=== PATIENT | male | born 1995 | race Asian ===

== ENCOUNTER 2024-08-14 21:58 | Emergency (ER) | payer MEDICAID, SELFPAY ==
[2024-08-14 22:00] VITALS: BMI 21.2
[2024-08-14 22:39] VITALS: BP 130/78; PULSE 68; RESP 16; TEMP 36.9; O2SAT 100
--- NOTE | 2024-08-14 22:51 | EDNOTE_ITS ---
ED Skin Abcess FB-RME/HPI General Chief complaint: Skin/Abscess/Foreign Body Stated complaint: RASH ON BACK Time Seen by Provider: 08/14/24 22:50 Source: patient Arrival date/time: 08/14/24 21:58 29-year-old male with no past medical history presents emergency department complaining of rash to back that is been ongoing for 1 year. Patient denies any fever, chills, cough, sore throat, shortness of breath, nausea vomiting, or any other associated symptom. Mode of arrival: ambulatory Limitations: language barrier ([employer] bedspread seamer was provided) Related Data Previous Rx's ?Medication ?Instructions ?Recorded white petrolatum 41 % topical 1 applic topical QDAY PRN dry skin 08/14/24 ointment (Aquaphor Original) #396 grams Allergies Allergy/AdvReac Type Severity Reaction Status Date / Time No Known Allergies Allergy Verified 08/14/24 22:00 Review of Systems Review of Systems Systems Reviewed: All systems reviewed, normal except as documented Constitutional Constitutional: Reports system reviewed and no additional complaints, except as documented, Denies body ache(s), Denies chills and Denies fever(s) Eyes Eyes: Reports system reviewed and no additional complaints, except as documented and Denies change in vision ENT Ears, Nose, Mouth, and Throat: Reports system reviewed and no additional complaints, except as documented, Denies disequilibrium, Denies dizziness, Denies sore throat and Denies vertigo Cardiovascular Cardiovascular: Reports system reviewed and no additional complaints, except as documented, Denies chest pain and Denies dyspnea Respiratory Respiratory: Reports system reviewed and no additional complaints, except as documented, Denies chest congestion, Denies cough and Denies dyspnea Gastrointestinal Gastrointestinal: Reports system reviewed and no additional complaints, except as documented, Denies abdominal pain, Denies nausea and Denies vomiting Musculoskeletal Musculoskeletal: Reports system reviewed and no additional complaints, except as documented, Denies abnormal gait and Denies arthralgias Integumentary/Breasts Skin/Breast: Reports system reviewed and no additional complaints, except as documented, Denies erythema, Reports rash and Denies wounds Neurologic Neurologic: Reports system reviewed and no additional complaints, except as documented, Denies abnormal gait, Denies disequilibrium, Denies dizziness and Denies vertigo Past Medical History Past Medical History NEUROLOGIC: Negative Neurological Disorders CARDIAC: Negative Cardiac Disorders or Congestive Heart Failure RESPIRATORY: Negative Chronic Obstructive Pulmonary Disease (COPD) GASTROINTESTINAL: Negative Gastrointestinal Disorders or Hepatitis GENITOURINARY: Negative Genitourinary Disorders or Renal Disease REPRODUCTIVE: Negative Breast Cancer MUSCULOSKELETAL: Negative Musculoskeletal Disorders ENDOCRINE: Negative Endocrine Disorders, Diabetes Mellitus Type 1 or Diabetes Mellitus Type 2 HEMATOLOGIC: Negative Blood Disorders OTHER HISTORY: Negative Hospitalization, Autoimmune Disease, Down Syndrome, Developmental Delay, Shingles, Falls, Blood Transfusions, Blood Transfusion Reaction, Anesthesia Reactions, Organ Transplant, Chemotherapy, Radiation Therapy, Hyperbaric Therapy, MRSA, VRSA, Vancomycin-Resistant Enterococci, Human Immunodeficiency Virus (HIV), Chicken Pox, Measles, Mumps, Rubella (D[place]ib[place]ian Measles), Pertussis, Clostridium Difficile, Cancer or Breast Cancer Family History FAMILY HISTORY: Negative Family Psychiatric Problems, Family Respiratory Disorders, Family Cardiac Disorders or Family Gastrointestinal Problems Surgical History SURGICAL: Negative Organ Transplant Social History SMOKING STATUS: Never smoker ED Exam General Limitations: Present language barrier ([employer] bedspread seamer was provided) General appearance: Present alert and in no apparent distress Head Head exam: Present atraumatic Eye Eye exam: Present normal appearance, PERRL and EOMI ENT ENT exam: Present normal exam, normal oropharynx and mucous membranes moist Neck Neck exam: Present normal inspection, full ROM and trachea midline Chest Chest inspection: Present normal inspection and symmetric chest wall rise Respiratory Respiratory exam: Present normal lung sounds bilaterally Cardiovascular Cardiovascular exam: Present regular rate, normal rhythm and normal heart sounds Abdominal Exam Abdominal exam: Present soft and normal bowel sounds Extremities Exam Extremities exam: Present normal inspection and full ROM Back Exam Back exam: Present normal inspection and full ROM Neurological Exam Neurological exam: Present alert, oriented X3 and CN II-XII intact Psychiatric Psychiatric exam: Present normal affect and normal mood Skin Skin exam: Present warm, dry and intact Expanded Skin Exam Type of lesion: Present other (Dry scaly skin) Distribution: Present generalized Body image: 2 1. Dry scaly skin no obvious rash erythema lesions or abscesses. Course Quality Measures none Vital Signs Vital signs: Vital Signs Temperature 98.4 F 08/14/24 22:39 Pulse Rate 68 08/14/24 22:39 Respiratory Rate 16 08/14/24 22:39 Blood Pressure 130/78 08/14/24 22:39 Pulse Oximetry (%) 100 08/14/24 22:39 Oxygen Delivery Method Room Air 08/14/24 22:39 100% room air within normal limits Skin / Abscess / Foreign Body MDM Narrative MDM Narrative:: 29-year-old male with no past medical history presents emergency department complaining of rash to back that is been ongoing for 1 year. Patient denies any fever, chills, cough, sore throat, shortness of breath, nausea vomiting, or any other associated symptom. On skin exam patient is back is dry scaly skin, with no erythema, rash, or signs of infection. No abnormal skin growths observed. Patient appears nontoxic and hemodynamically stable. Patient discharged home and instructed to follow-up with primary care provider and request referral to handle rounder operator if symptoms persist. Instructed to return to emergency department for any worsening symptoms or as needed. Patient data External records reviewed:: None Clinical information provided by:: patient and family Social determinants that could affect healthcare access:: none Patient has the following chronic illnesses:: Not applicable How is presenting disease/condition affected by chronic disease/condition?: no chronic disease Evaluation data The following diagnostics were reviewed and interpreted by me:: other (specify) (Not applicable) Lab and/or radiology exams considered but not ordered:: Not applicable Interpretation Summary: Not applicable Medications / Prescriptions Medications or Prescriptions considered but not ordered:: Prescribed Medication administrations:: Not applicable Consultations Consultation(s) initiated? (list below): No Diagnosis Skin/Abscess Differential Diagnosis: viral exanthem, eczema and contact dermatitis Most likely diagnosis given after review of the tests above:: Dry skin dermatitis Admission Indicated Admission indicated?: not indicated Admission Request Was there a request for admission?: No Disposition Plan Disposition Plan: Discharge Discharge Attestation Discharge Attestation: The patient and all family members were given an opportunity to ask questions and understood the discharge instructions. Discharge instructions specifically effects, indications for sooner follow up or return to the emergency department, and the expected course of current diagnosis. Patient condition: Stable Discharge Plan Plan Patient Disposition: HOME (Self Care) Disposition Comment: Stable Prescriptions/Referrals Prescriptions/Med Rec: New Aquaphor Original 41 % ointment 1 applic topical QDAY PRN (Reason: dry skin) Qty: [id number] Problem List Clinical Impression: Dry skin dermatitis Patient/Caregiver Discharge Instructions Additional Instructions: Apply medication as prescribed. Follow-up with primary care provider and request referral to handle rounder operator if symptoms persist. Return to emergency department for any worsening symptoms or as needed. Print Language: Mandarin Stand Alone Forms: Cathy Award Info., Patient Portal Info Letter MD Attestation MD Attestation The patient was seen by the midlevel practitioner. I, the co-signing physician, was present during the entire ER visit. While I did not physically examine the patient, I was available for consultation as needed.
== END 2024-08-14 23:56 | disposition home or self-care (01) ==
LOC: SERX 23:50
PROVIDERS: Emergency Provider Emergency Medicine
DX: L85.3 Xerosis cutis (principal)
CPT/HCPCS: 99281

== ENCOUNTER → 2025-03-20 | Outpatient (BNVA) | payer MEDICAID, SELFPAY | END | disposition home or self-care (01) | PROVIDERS: PCP Nurse Practitioner Family; Referring Provider Nurse Practitioner Family; Visit Provider Nurse Practitioner Family | DX: Z76.89 Persons encountering health services in other specified circumstances (principal); Z11.3 Encounter for screening for infections with a predominantly sexual mode of transmission; Z13.220 Encounter for screening for lipoid disorders; Z13.1 Encounter for screening for diabetes mellitus; Z23 Encounter for immunization; Z28.39 Other underimmunization status | CPT/HCPCS: 90471; 90715; 99214 ==

== ENCOUNTER → 2025-04-03 | Outpatient (BNVA) | payer MEDICAID, SELFPAY | END | disposition home or self-care (01) | PROVIDERS: PCP Nurse Practitioner Family; Referring Provider Nurse Practitioner Family; Visit Provider Nurse Practitioner Family | DX: Z71.2 Person consulting for explanation of examination or test findings (principal); L70.9 Acne, unspecified; E78.5 Hyperlipidemia, unspecified; Z28.83 Immunization not carried out due to unavailability of vaccine; R06.83 Snoring; R79.89 Other specified abnormal findings of blood chemistry | CPT/HCPCS: 99215 ==

== ENCOUNTER → 2025-06-12 | Outpatient (BNVA) | payer MEDICAID, SELFPAY | END | disposition home or self-care (01) | PROVIDERS: PCP Nurse Practitioner Primary Care; Referring Provider Nurse Practitioner Primary Care; Visit Provider Nurse Practitioner Primary Care | DX: Z00.01 Encounter for general adult medical examination with abnormal findings (principal); R79.89 Other specified abnormal findings of blood chemistry; E78.5 Hyperlipidemia, unspecified; R06.83 Snoring | CPT/HCPCS: 99173; 99395; G0439 ==

== ENCOUNTER → 2025-06-26 | Outpatient (BNVA) | payer MEDICAID, SELFPAY | END | disposition home or self-care (01) | PROVIDERS: PCP Nurse Practitioner Family; Referring Provider Nurse Practitioner Family; Visit Provider Nurse Practitioner Family | DX: Z71.2 Person consulting for explanation of examination or test findings (principal); E78.5 Hyperlipidemia, unspecified; Z13.1 Encounter for screening for diabetes mellitus | CPT/HCPCS: 99213 ==

== ENCOUNTER 2025-08-24 23:18 | Observation (INO) | payer MEDICAID, SELFPAY ==
[2025-08-24 23:20] VITALS: BMI 21.7
[2025-08-24 23:34] VITALS: BP 135/91; PULSE 81; RESP 18; TEMP 36.4; O2SAT 98
--- NOTE | 2025-08-24 23:41 | XR_ITS ---
Examination: CT abdomen with intravenous contrast CT pelvis with intravenous contrast 2-D coronal reconstructions 2-D sagittal reconstructions Date and time of exam: August 25, 2025, 0157 hours INDICATIONS: Abdominal pain nausea vomiting today. CTDI: vol (mGy) 4.47 DLP: (mGycm) 264 Technique: Multiple axial sections of the abdomen and pelvis have been obtained. 64 slice high-resolution scanner used. 3 mm axial sections have been obtained, post intravenous injection 60 cc Isovue 370 2-D sagittal, coronal reconstructions obtained. Low dose protocols were performed. One or more of the following dose reduction techniques were used; automated exposure control, adjustment of the mA and/or KV according to patient size, use of iterative reconstruction technique. Findings: No focal liver or splenic lesions No biliary tract dilatation Multiple fluid distended small bowel loops Aorta normal size Normal appendix Urinary bladder intact No prostatomegaly Osseous structures intact IMPRESSION: Multiple fluid distended small bowel loops, differential would include enteritis, early small bowel obstruction, clinical correlation advised
--- NOTE | 2025-08-24 23:42 | PD.EDRME ---
Rapid Medical Screening Exam [facility] Arrival date/time: 08/24/25 23:18 30M with no significant PMH Presents to ED with N/V, ab pain, and diarrhea. Chief Complaint: Abdominal Pain Vital signs: Vital Signs Temperature 97.6 F 08/24/25 23:34 Pulse Rate 81 08/24/25 23:34 Respiratory Rate 18 08/24/25 23:34 Blood Pressure 135/91 H 08/24/25 23:34 Pulse Oximetry (%) 98 08/24/25 23:34 Oxygen Delivery Method Room Air 08/24/25 23:34 Exam: Mild gen ab tenderness. Actively having N/V. Clinical Impression: gastroenteritis vs appy vs ab pain vs food poisoning vs drug/alcohol use
[2025-08-25] VITALS (7 sets, daily range): BP systolic 102–138; BP diastolic 67–84; PULSE 69–95; RESP 18–19; TEMP 36.3–37.1; O2SAT 96–100; BMI 21.7
[2025-08-25] MEDS: ONDANSETRON INJ 2 MG/ML INJ 2 ML 4 MG IVP (00:18)
[2025-08-25] MEDS: SODIUM CHLORIDE 0.9% 1000 ML 1,000 ML 999 ML IV ×2 (00:18→03:40)
[2025-08-25] MEDS: MORPHINE SULF INJ 4 MG/ML VIAL IV (00:18)
[2025-08-25 01:39] LABS: Anion Gap 11 (7-16); BUN/Creatinine Ratio 14 Ratio (12-20); Blood Urea Nitrogen 15 mg/dL (9-23); Carbon Dioxide 26.7 mMol/L (20.0-31.0); Chloride 104 mMol/L (98-107); Creatinine (Component) 1.1 mg/dL (0.6-1.3); Estimated Creatinine Clearance 93.6 mL/min (>60); Potassium 3.4 mMol/L (3.4-5.1); Sodium 142 mMol/L (136-145)
[2025-08-25 01:40] LABS: Alanine Aminotransferase 34 U/L (10-49); Albumin, Serum 4.7 gm/dL (3.5-5.0); Albumin/Globulin Ratio 2.1 (1.2-2.2); Alcohol, Blood Medical < 3.0 mg/dL (0-10.0); Alkaline Phosphatase 71 U/L (46-116); Aspartate Amino Transferase 22 U/L (0-34); Bilirubin,Total 0.8 mg/dL (0.3-1.2); Calcium 9.2 mg/dL (8.3-10.6); Calcium (Corrected) 9.2 mg/dL (8.5-10.1); Globulin 2.2 gm/dL (2.3-3.5); Glucose 125 mg/dL (74-106); Lipase 54 U/L (12-53); Osmolality,Calculated 284 (275-295); Total Protein 6.9 gm/dL (5.7-8.2); eGFR > 60 See Note
[2025-08-25 02:11] LABS: Basophils # (Auto) 0.1 Thou/mm3 (0.0-0.2); Basophils % (Auto) 0 % (0-2.5); Eosinophils # (Auto) 0.1 Thou/mm3 (0.0-0.5); Eosinophils % (Auto) 1 % (0-10); Hematocrit 45.6 % (41.0-53.0); Hemoglobin 15.4 g/dL (13.5-16.0); Immature Granulocytes Auto 0.03 Thou/mm3 (0.00-0.00); Lymphocytes # (Auto) 3.8 Thou/mm3 (1.0-4.8); Lymphocytes % (Auto) 32 % (10-50); Mean Corpuscular HGB Conc 33.8 g/dl (31.0-37.0); Mean Corpuscular Hemoglobin 31.2 pg (25.0-35.0); Mean Corpuscular Volume 92 fL (80-100); Monocytes # (Auto) 0.8 Thou/mm3 (0.0-0.8); Monocytes % (Auto) 6 % (0-12); Neutrophils # (Auto) 7.4 Thou/mm3 (1.8-7.7); Neutrophils % (Auto) 61 % (37-80); Nucleated Red Blood Cell # 0.00 Thou/mm3 (0.00-0.00); Nucleated Red Blood Cell % 0 /100 WBC (0); Platelet Count 201 Thou/mm3 (140-440); RDW Standard Deviation 42.0 fL (35.1-43.9); Red Blood Count 4.94 Miln/mm3 (4.50-5.90); White Blood Count 12.2 Thou/mm3 (3.8-10.6)
[2025-08-25 02:27] LABS: Collection Type, Urine Clean Catch; Squamous Epithelial Cell,Urine 0 /hpf (0-5)
[2025-08-25 02:40] LABS: Bilirubin,Urine Negative (Negative); Blood,Urine Negative (Negative); Clarity,Urine Clear (Clear/Hazy); Color,Urine Lt-Yellow (Lt Yel-Yel); Culture Indicated,Urine Not Indicated; Glucose, Urine Negative (Negative); Ketones,Urine 2+ (Negative); Leukocyte Esterase,Urine Negative (Negative); Nitrite,Urine Negative (Negative); PH,Urine 7.0 (5.0-7.0); Protein,Urine Trace (Neg - Trace); RBC,Urine 9 /hpf (0-3); Specific Gravity,Urine 1.042 (1.001-1.035); Urobilinogen,Urine Negative mg/dL (0.0-1.0); WBC,Urine < 1 /hpf (0-5)
[2025-08-25 03:11] LABS: Amphetamine/Methamp Scrn,U Negative (Negative); Barbiturate Screen,Urine Negative (Negative); Benzodiazepines Screen,Urine Negative (Negative); Benzoylecgonine Screen, Ur Negative (Negative); Fentanyl Screen,Urine Negative (Negative); Opiate Screen,Urine Positive (Negative); THC Screen,Urine Negative (Negative)
--- NOTE | 2025-08-25 03:16 | PD.EDABDPN ---
ED Abdominal Pain RME/HPI General Chief Complaint: Abdominal Pain Stated complaint: ABD PAIN VOMITING, DIARRHEA Time seen by provider: 08/24/25 23:43 Arrival date/time: 08/24/25 23:18 RME / HPI RME / HPI narrative: 08/24/25 23:18 30M with no significant PMH Presents to ED with N/V, ab pain, and diarrhea. DR. CLEARY MAIN ED EVALUATION: Patient presents with multiple bouts of nausea, vomiting, and diarrhea onset 7 PM this evening with diffuse abdominal pain vaguely described as pressure-like. No definite fever or chills. No URI symptoms. No dysuria. PMH: Unremarkable PSH: Unremarkable Allergies: Unremarkable Social: Unremarkable Exam: Mild gen ab tenderness. Actively having N/V. Impression: gastroenteritis vs appy vs ab pain vs food poisoning vs drug/alcohol use Related Data Home Medications ?Medication ?Instructions ?Recorded ?Confirmed No Known Home Medications 06/26/25 06/26/25 Allergies Allergy/AdvReac Type Severity Reaction Status Date / Time No Known Allergies Allergy Verified 08/24/25 23:33 Review of Systems Review of Systems Systems Reviewed: All systems reviewed, normal except as documented ED Exam Narrative Physical exam: GEN. APPEARANCE: The patient is alert awake oriented X-3 under mild distress c/o generalized abdominal pain, lying down comfortably, does not look ill/toxic. Patient has good eye contact. Patient is cooperative. VITALS: All vitals were reviewed and the pulse ox is 98%, which is normal according to my interpretation HEENT: Normocephalic, atraumatic and nontender. Pupils are equal and reactive. Oral mucosa is moist. NECK: Supple, nontender, no meningismus, no JVD. There is no thyromegaly and no lymphadenopathy. CHEST: Nontender on palpation no deformity and no crepitus. CARDIOVASCULAR: Heart regular rhythm, no murmur or gallop rub or extra beats. LUNGS: Clear to auscultation bilaterally with symmetrical chest rise. No laboring tachypnea or wheezing. No intercostal subcostal retraction. No rales and no rhonchi. ABDOMEN: Soft, flat, nontender to palpation, no guarding, slightly hypertympanitic. There are no abnormal masses palpated. No pulsatile masses or bruits. Active and normal bowel sounds. EXTREMITIES: Normal inspection and palpation. No edema. No cyanosis. Patient is able to move all 4 extremities well SKIN: Warm and dry, no rashes noted. MUSCULOSKELETAL: No lumbar or midline bony tenderness. There is no CVA tenderness. No paraspinal muscle spasm or tenderness. NEURO: Cranial nerves II through XII grossly intact. There are no focal neurologic deficits noted. GCS is 15 PSYCHIATRIC: Patient is in normal mood and affect, cooperative. LYMPHATICS: No major lymphadenopathy noted. Course Quality Measures none Orders Category Date Time Status CT Screening NOW Care 08/24/25 23:41 Active Insert IV NOW Care 08/24/25 23:[address] abdomen pelvis w con Stat Exams 08/24/25 23:41 Taken US abdomen limited Stat Exams 08/25/25 03:42 Ordered Alcohol, Blood Medical Stat Lab 08/24/25 23:41 Completed CBC Stat Lab 08/24/25 23:41 Completed CMP [Comprehensive Metabolic Panel] Stat Lab 08/24/25 23:41 Completed Drug Screen,Urine Stat Lab 08/25/25 02:25 Completed Lipase Stat Lab 08/24/25 23:41 Completed Norovirus, EIA (Stool)* Stat Lab 08/25/25 Ordered UA, C/S IF [Urinalysis, C/S if Indicated] Stat Lab 08/25/25 02:25 Completed Morphine* Inj Med 08/24/25 23:48 Discontinued 4 mg IV X1 ONE Ondansetron Inj [Zofran Inj] Med 08/24/25 23:41 Discontinued 4 mg IVP X1 ONE Prochlorperazine Inj [Compazine Inj] Med 08/25/25 03:29 Discontinued 5 mg IV X1 ONE Sodium Chloride 0.9% 1000 ml [Ns] 1,000 ml Med 08/24/25 23:41 Discontinued IV 999 mls/hr Sodium Chloride 0.9% 1000 ml [Ns] 1,000 ml Med 08/25/25 03:29 Active IV 999 mls/hr cefTRIAXone/D5w 1gm IV premix [Rocephin/D5w 1gm IV Med 08/25/25 03:39 Ordered premix] 1 gm in 50 ml IV X1 metroNIDAZOLE/NS 500 MG IVPB [Flagyl 500 mg IV] Med 08/25/25 03:42 Ordered 500 mg in 100 ml IV Q6HR Vital Signs Vital signs: Vital Signs Temperature 97.6 F 08/24/25 23:34 Pulse Rate 81 08/24/25 23:34 Respiratory Rate 18 08/24/25 23:34 Blood Pressure 135/91 H 08/24/25 23:34 Pulse Oximetry (%) 98 08/24/25 23:34 Oxygen Delivery Method Room Air 08/24/25 23:34 Abdominal Pain MDM MDM Narrative MDM Narrative:: Scribe Attestation: Elisa Alfredo, am scribing for and in the presence of Dr. Lazcano. Provider Notation: Although this document has been carefully reviewed, there may still be some phonetic and other typographical errors. These errors are purely grammatical due to imperfections in the software program and should not be construed in any way to compromise the substance of the patient's medical care during this visit. Patient presents with multiple bouts of nausea, vomiting, and diarrhea onset 7 PM this evening with diffuse abdominal pain vaguely described as pressure-like. No definite fever or chills. Please see PE findings. Patient was aggressively hydrated to correct volume deficit and treated with low-dose narcotic analgesics/anti-emetics with mild to moderate relief. Patient referred to CT scan which demonstrates evidence of partial SBO/Enteritis. Imperic ABX administered, patient remained hemodynamically stable with no signs of underlying sepsis. Final diagnoses include Ileus, acute enteritis, and dehydration. Patient data External records reviewed:: [facility] previous records (Reviewed prior ED records from 08/14/24. Patient was seen for Dry skin dermatitis.) Clinical information provided by:: patient Social determinants that could affect healthcare access:: none Patient has the following chronic illnesses:: None reported How is presenting disease/condition affected by chronic disease/condition?: no chronic disease Evaluation data The following diagnostics were reviewed and interpreted by me:: lab results and radiology exam(s) Lab and/or radiology exams considered but not ordered:: None Interpretation Summary: RADIOLOGY Abdomen/Pelvis CT: Findings: The lung bases are clear. The liver, spleen, adrenal glands, pancreas and kidneys are unremarkable. The gallbladder and stomach are decompressed with probable wall edema. The urinary bladder is normal. Trace free fluid in the pelvis. The abdominal wall is unremarkable. Mild diffuse small bowel wall thickening. There are mildly distended small bowel loops with fluid levels. Edema of the mid transverse through descending colon. No free intraperitoneal air. The appendix is normal, best seen on image 168. Impression: Enterocolitis with partial small bowel obstruction. Probable gallbladder wall edema. Consider ultrasound for further evaluation if there is concern for cholecystitis. Possible gastric wall edema, not well evaluated secondary to decompression, may represent gastritis. Medications / Prescriptions Medications or Prescriptions considered but not ordered:: None Medication administrations:: Medication Administration History Sodium Chloride (Ns) 1,000 mls @ 999 mls/hr IV .Q1H1M ONE Stop: 08/25/25 04:29 Last Admin: 08/25/25 03:40 Dose: 999 mls/hr Documented By: MELONIE Ceftriaxone Sodium/Dextrose (Rocephin/D5w 1gm Iv Premix) 1 gm in 50 mls @ 100 mls/hr IV X1 ONE Stop: 08/25/25 04:08 Metronidazole (Flagyl 500 Mg Iv) 500 mg in 100 mls @ 200 mls/hr IV Q6HR STARLA Stop: 09/01/25 03:41 Discontinued Medications Sodium Chloride (Ns) 1,000 mls @ 999 mls/hr IV .Q1H1M ONE Stop: 08/25/25 00:41 Last Infusion: 08/25/25 02:26 Dose: Infused Documented By: Admin: 08/25/25 00:18 Dose: 999 mls/hr Documented By: DMITRY Morphine Sulfate (Morphine Sulf Inj 4 Mg/Ml Vial) 4 mg IV X1 ONE Stop: 08/24/25 23:49 Last Admin: 08/25/25 00:18 Dose: 4 mg Documented By: DMITRY Ondansetron HCl (Ondansetron Inj 2 Mg/Ml Inj 2 Ml) 4 mg IVP X1 ONE; Protocol Stop: 08/24/25 23:42 Last Admin: 08/25/25 00:18 Dose: 4 mg Documented By: DMITRY Prochlorperazine Edisylate (Prochlorperazine Inj 5 Mg/Ml Vial 2 Ml) 5 mg IV X1 ONE; Protocol Stop: 08/25/25 03:30 See above if any Consultations Consultation(s) initiated? (list below): Yes Consultation #1 (Physician, Specialty, Details): Discussed with resident physician, Dr. Cross, for admission. Reviewed the patient?s HPI, PMHx, lab and/or radiology results. Discussed treatment plan. Will consult an admission to the hospitalist. Time: 03:48 Diagnosis Differential diagnosis abdominal pain: abdominal pain, acute appendicitis, calculus of kidney, constipation, diverticulitis, gastroenteritis, pancreatitis and small bowel obstruction Most likely diagnosis given after review of the tests above:: Ileus, acute enteritis, and dehydration Admission Indicated Admission indicated?: indicated Explain why admission is indicated or not indicated:: Ileus, acute enteritis, and dehydration Admission Request Was there a request for admission?: Yes Admission Attestation Admission request attestation: Discussed case with [] from Hospitalist service regarding admission. Discussed patients ED course, exam findings, labs, and radiology results. The Hospitalist [agrees,declines] to accept the patient for admission. Disposition Plan Disposition Plan: Admit Discharge Plan Plan Patient Disposition: Admit Acute Care w/in Hospital Prescriptions/Referrals Prescriptions/Med Rec: No Action No Known Home Medications Referrals: [facility],Karen Urias NP [Primary Care Provider, Family Practice] - In 1 week Problem List Clinical Impression: Ileus, Enteritis, Dehydration Patient/Caregiver Discharge Instructions Print Language: Mandarin Stand Alone Forms: Cathy Award Info., Patient Portal Info Letter
--- NOTE | 2025-08-25 03:25 | PRELIM_ITS ---
CT scan of the abdomen and pelvis with intravenous contrast (axial sections with sagittal and coronal reformats). August 25, 2025 at 0157 hours Clinical History: Abdominal pain, nausea, vomiting and diarrhea. Comparison: No prior study is available for comparison. Findings: The lung bases are clear. The liver, spleen, adrenal glands, pancreas and kidneys are unremarkable. The gallbladder and stomach are decompressed with probable wall edema. The urinary bladder is normal. Trace free fluid in the pelvis. The abdominal wall is unremarkable. Mild diffuse small bowel wall thickening. There are mildly distended small bowel loops with fluid levels. Edema of the mid transverse through descending colon. No free intraperitoneal air. The appendix is normal, best seen on image 168. Impression: Enterocolitis with partial small bowel obstruction. Probable gallbladder wall edema. Consider ultrasound for further evaluation if there is concern for cholecystitis. Possible gastric wall edema, not well evaluated secondary to decompression, may represent gastritis. Discussion Details: Results verbally communicated to : Dr. Centeno at 03:17 AM 08/25/2025 Report Electronically Signed By: Rod Vernon 08/25/2025 3:24:41 AM [EST]
--- NOTE | 2025-08-25 03:42 | XR_ITS ---
Examination: Abdomen sonogram, Limited Date and time of exam: August 25, 2025, 0445 hours INDICATIONS: Abdominal pain and vomiting beginning today Technique: Real-time jackson scale transabdominal sonographic images of the upper abdomen obtained. Findings: Normal gallbladder. Normal common bile duct 0.2 cm Pancreatic head 2.5 cm Liver 15.7 cm no liver lesions Normal hepatopetal portal venous flow Patent IVC IMPRESSION: Negative study
[2025-08-25] MEDS: cefTRIAXone/D5w 1gm IV premix 1 GM/50 ML BAG IV (04:21)
--- NOTE | 2025-08-25 04:27 | PD.RESHP ---
Documentation for date of: 08/25/25 [facility] History of Present Illness History of present illness: 30-year-old male with no significant past medical history presents to the ED with a chief complaint of nausea, vomiting, abdominal pain, and diarrhea. The pain began periumbilically at 7 PM, and he has had 7 nonbloody episodes of vomiting and 4-5 watery episodes of diarrhea. He denies fever, urinary symptoms, or chest discomfort. In the ED, the patient received 4 mg of IV morphine and 2 L of normal saline, after which his symptoms have improved. ED course: Initial vitals include T97.6, BP 135/91, HR 81, RR 18, O2 sat 98% room air. Notable labs include WBC 12.2, creatinine 1.1, LFTs within normal range, lipase 54. UA clear. CT abdomen/pelvis shows enterocolitis with partial small bowel obstruction, probable gallbladder wall edema, possible gastric wall edema. In ED patient received ceftriaxone 1 g, 2 L NaCl, morphine 4 mg, ondansetron 4 mg. Past medical history: As stated above. Past surgical history: Unremarkable. Allergies: NKDA. Family history: Noncontributory. Social history: No alcohol use, no smoking, no illicit drug use. Patient admitted for possible early development of SBO. Review of Systems Review of Systems Narrative Review of Systems: All systems reviewed negative unless stated otherwise above. Exam Vital Signs Temp Pulse Resp BP Pulse Ox O2 Del Method 98.8 F 81 18 123/73 98 Room Air 08/25/25 02:13 08/25/25 02:13 08/25/25 02:13 08/25/25 02:13 08/25/25 02:13 08/25/25 02:13 Narrative Exam General: AOx3, no acute distress, able to speak full sentences, Mandarin/Cantonese speaking (only) HEENT: NC/AT, mucous membranes moist, bilateral sclera anicteric Cardiovascular: regular rate and rhythm, S1/S2 present, no murmurs appreciated Pulmonary: clear to auscultation bilaterally, no rales/rhonchi/wheezes Abdominal: soft, non-tender, non-distended, no rebound/guarding, normal bowel sounds present Musculoskeletal: normal ROM, no peripheral edema Skin: warm and dry, intact, no rashes, Neuro: CN II-XII intact, no focal deficits Results: Labs 11/22/25 04:40 08/25/25 04:40 Labs: Short CBC 08/25/25 Range/Units 00:11 WBC 12.2 H (3.8-10.6) Thou/mm3 Hgb 15.4 (13.5-16.0) g/dL Hct 45.6 (41.0-53.0) % Plt Count 201 (140-440) Thou/mm3 BMP 08/25/25 00:11 Sodium 142 Potassium 3.4 Chloride 104 Carbon Dioxide 26.7 BUN 15 Creatinine 1.1 Glucose 125 H Calcium 9.2 Liver Function 08/25/25 Range/Units 00:11 Total Bilirubin 0.8 (0.3-1.2) mg/dL AST 22 (0-34) U/L ALT 34 (10-49) U/L Alkaline Phosphatase 71 (46-116) U/L Albumin 4.7 (3.5-5.0) gm/dL Urine 08/25/25 Range/Units 02:25 Urine Color Lt-Yellow (Lt Yel-Yel) Urine Clarity Clear (Clear/Hazy) Urine pH 7.0 (5.0-7.0) Ur Specific [place] 1.042 H (1.001-1.035) Urine Protein Trace (Neg - Trace) Urine Glucose (UA) Negative (Negative) Quality Measures Quality Measures VTE prophylaxis Medications Home Medications and Allergies Home Medications ?Medication ?Instructions ?Recorded ?Confirmed ?Type No Known Home Medications 06/26/25 08/25/25 History Allergies Allergy/AdvReac Type Severity Reaction Status Date / Time No Known Allergies Allergy Verified 08/24/25 23:33 Visit Medications Acetaminophen (Acetaminophen 325 Mg Tablet) 650 mg PO Q6H PRN PRN Reason: PAIN (1-3) OR FEVER > 100.4 Stop: 09/24/25 04:18 Enoxaparin Sodium (Enoxaparin Sod Inj 40 Mg/0.4 Ml Syringe) 40 mg SC QDAY STARLA Stop: 09/08/25 08:59 Sodium Chloride (Ns) 1,000 mls @ 999 mls/hr IV .Q1H1M ONE Stop: 08/25/25 04:29 Last Admin: 08/25/25 03:40 Dose: 999 mls/hr Metronidazole (Flagyl 500 Mg Iv) 500 mg in 100 mls @ 200 mls/hr IV Q6HR STARLA Stop: 09/01/25 03:41 Lactated Ringer's (Lactated Ringers) 1,000 mls @ 75 mls/hr IV .[id number] STARLA Stop: 09/24/25 04:29 Ondansetron HCl (Ondansetron Inj 2 Mg/Ml Inj 2 Ml) 4 mg IVP Q6H PRN; Protocol PRN Reason: NAUSEA OR VOMITING Stop: 09/24/25 04:18 Discontinued Medications Sodium Chloride (Ns) 1,000 mls @ 999 mls/hr IV .Q1H1M ONE Stop: 08/25/25 00:41 Last Infusion: 08/25/25 02:26 Dose: Infused Ceftriaxone Sodium/Dextrose (Rocephin/D5w 1gm Iv Premix) 1 gm in 50 mls @ 100 mls/hr IV X1 ONE Stop: 08/25/25 04:08 Last Admin: 08/25/25 04:21 Dose: 100 mls/hr Morphine Sulfate (Morphine Sulf Inj 4 Mg/Ml Vial) 4 mg IV X1 ONE Stop: 08/24/25 23:49 Last Admin: 08/25/25 00:18 Dose: 4 mg Ondansetron HCl (Ondansetron Inj 2 Mg/Ml Inj 2 Ml) 4 mg IVP X1 ONE; Protocol Stop: 08/24/25 23:42 Last Admin: 08/25/25 00:18 Dose: 4 mg Prochlorperazine Edisylate (Prochlorperazine Inj 5 Mg/Ml Vial 2 Ml) 5 mg IV X1 ONE; Protocol Stop: 08/25/25 03:30 Assessment & Plan Plan 30-year-old male with no significant past medical history presents to the ED with a chief complaint of nausea, vomiting, abdominal pain, and diarrhea. Patient admitted for possible early development of SBO. #Possible early development of SBO #Gastroenteritis #Intractable nausea and vomiting Abdominal pain began periumbilically at 7 PM, and he has had 7 nonbloody episodes of vomiting and 4-5 watery episodes of diarrhea. WBC mildly elevated at 12.2 No fever Abdominal exam unremarkable, soft, nontender. CT abdomen/pelvis shows enterocolitis with partial small bowel obstruction, probable gallbladder wall edema, possible gastric wall edema. Patient may be emptying what is in his colon but small intestine could be developing an obstruction Plan ? GI series ordered ? N.p.o. ? LR 75 cc an hour x 1 bag ? If continues to have nausea may consider inserting NG tube with low intermittent suction ? Stool to be sent for norovirus testing #Gallbladder wall edema CT Abdo/pelvis showed probable gallbladder wall edema Abdominal exam unremarkable Plan ? Abdominal ultrasound ordered Health Maintenance: Diet: N.p.o. GI prophylaxis: None DVT prophylaxis: Lovenox Antibiotics: Flagyl and ciprofloxacin CODE STATUS: Full Disposition: [facility] Case discussed with my attending Dr. Haro, and senior resident, Dr. Tay Soto MD PGY-1 Attending Provider Attestation/Addendum After examination of the patient and review of the clinical data I feel that this patient needs admission to the hospital for further treatment/evaluation. Plan of care discussed with patient and is in agreement. I Joao Haro MD, attest that I was physically present for coffey portions of evaluation, and examined patient, labs and imagings and plan of care were discussed with IM residents team, and I agree with the findings and plans documented above.
[2025-08-25] MEDS: metroNIDAZOLE/NS 500 MG IVPB 500 MG/100 ML BAG 200 MG IV (05:00)
[2025-08-25 05:02] LABS: Basophils # (Auto) 0.0 Thou/mm3 (0.0-0.2); Basophils % (Auto) 0 % (0-2.5); Eosinophils # (Auto) 0.0 Thou/mm3 (0.0-0.5); Eosinophils % (Auto) 0 % (0-10); Hematocrit 42.0 % (41.0-53.0); Hemoglobin 14.1 g/dL (13.5-16.0); Immature Granulocytes Auto 0.04 Thou/mm3 (0.00-0.00); Lymphocytes # (Auto) 1.2 Thou/mm3 (1.0-4.8); Lymphocytes % (Auto) 11 % (10-50); Mean Corpuscular HGB Conc 33.6 g/dl (31.0-37.0); Mean Corpuscular Hemoglobin 31.3 pg (25.0-35.0); Mean Corpuscular Volume 93 fL (80-100); Monocytes # (Auto) 0.3 Thou/mm3 (0.0-0.8); Monocytes % (Auto) 3 % (0-12); Neutrophils # (Auto) 9.4 Thou/mm3 (1.8-7.7); Neutrophils % (Auto) 85 % (37-80); Nucleated Red Blood Cell # 0.00 Thou/mm3 (0.00-0.00); Nucleated Red Blood Cell % 0 /100 WBC (0); Platelet Count 153 Thou/mm3 (140-440); RDW Standard Deviation 42.5 fL (35.1-43.9); Red Blood Count 4.50 Miln/mm3 (4.50-5.90); White Blood Count 11.0 Thou/mm3 (3.8-10.6)
[2025-08-25 05:20] LABS: Anion Gap 8 (7-16); BUN/Creatinine Ratio 14 Ratio (12-20); Blood Urea Nitrogen 13 mg/dL (9-23); Calcium 8.1 mg/dL (8.3-10.6); Carbon Dioxide 26.2 mMol/L (20.0-31.0); Chloride 108 mMol/L (98-107); Creatinine (Component) 0.9 mg/dL (0.6-1.3); Estimated Creatinine Clearance 114.4 mL/min (>60); Glucose 110 mg/dL (74-106); Osmolality,Calculated 284 (275-295); Potassium 4.1 mMol/L (3.4-5.1); Sodium 142 mMol/L (136-145); eGFR > 60 See Note
[2025-08-25] MEDS: RINGERS LACTATED 1000 ML 1,000 ML 75 ML IV (05:35)
--- NOTE | 2025-08-25 05:44 | PRELIM_ITS ---
Ultrasound Abdomen. August 25, 2025 at 0445 hours Clinical history: R/O CHOLECYSTITIS Technique: Grayscale and color flow images of the abdomen are provided. Hepatic and portal veins were also imaged with color flow images. Correlated with same day CT. Findings: No right hydronephrosis. Gallbladder wall is 3 mm thick. No gallbladder sludge or calculi. Common bile duct this 2 mm diameter. No intra or extrahepatic biliary duct dilatation.Pancreas is unremarkable to the extent visualized. Liver is 15.7 cm long and homogeneous. Main portal vein is antegrade. Inferior vena cava is patent. Impression: Normal gallbladder. Report Electronically Signed By: Rod Vernon 08/25/2025 5:43:49 AM [EST]
--- NOTE | 2025-08-25 06:38 | XR_ITS ---
EXAMINATION: Small bowel series AP abdomen 4 views Date and time: August 25, 2025, 0624 hours INDICATIONS: Abdominal distention this week TECHNIQUE AND FINDINGS: Patient received 120 cc Gastrografin with AP portable supine immediate, 30-minute, 1 hour abdomen films Contrast in the stomach and mildly dilated small bowel loops No free air Contrast present throughout the colon on the 1 hour film IMPRESSION: Negative for complete small bowel obstruction, no further films are needed
[2025-08-25] MEDS: ENOXAPARIN SOD INJ 40 MG/0.4 ML SYRINGE SC (09:00)
--- NOTE | 2025-08-25 11:43 | PD.RESDS ---
Planned Discharge Date 08/25/25 DS: Providers Provider Date of admission: 08/25/25 04:19 Primary care physician: Karen Chester NP Admitting Provider: Joao Haro MD Attending Provider on Admission: Joao Haro MD Attending Provider on DC: Freddy Rodrigez DO Discharging Provider: Jose Faye DO DS: Diagnosis Problem List Completed Was Problem List Reviewed/Reconciled?: Yes Hospital Course Hospital Course Hospital course: Summary: 30-year-old male with no significant past medical history presents to the ED with a chief complaint of nausea, vomiting, abdominal pain, and diarrhea. Patient admitted for possible early development of SBO. Hospital: During patient's hospital course, he underwent CTAP which showed enterocolitis with partial SBO but subsequent small bowel series was ultimately negative for SBO. Besides receiving 1 dose of Rocephin IV and Flagyl IV, patient's symptoms were managed supportively with IV fluids, pain management, and Zofran IV. By 08/25, patient's initial diarrhea and nausea had improved considerably and he was discharged home after it was confirmed he was tolerating oral diet. Patient is safe to discharge. Further discharge instructions below. Discharge Recommendations: -Follow up with PCP within 1 week of discharge -Return to the ED or call EMS if symptoms return and/or worsen. Hospital Diagnoses: #Possible early development of SBO, later ruled out by [id number] #??Acute viral gastroenteritis #??Acute food poisoning #Gallbladder wall edema Status at Discharge Cognitive/Behavioral Status at Discharge: stable Functional Status at Discharge: independent ambulation Overall Status at Discharge: patient is back to baseline Patient's care plan was discussed with my attending, Dr. Rodrigez, and senior resident, Dr. Zuñiga. Jose Faye DO Internal Medicine, PGY-1 Time Spent with Patient Time attestation: Total time spent providing and/or coordinating discharge services: Time spent: Greater than 30 minutes Exam Vital Signs Temp Pulse Resp BP Pulse Ox O2 Del Method 97.3 F 74 18 134/73 H 100 Room Air 08/25/25 08:00 08/25/25 08:00 08/25/25 08:00 08/25/25 08:00 08/25/25 08:00 08/25/25 08:00 Narrative Exam General: AOx3, no acute distress, able to speak full sentences, Mandarin speaking (only) HEENT: NC/AT, mucous membranes moist, bilateral sclera anicteric Cardiovascular: regular rate and rhythm, S1/S2 present, no murmurs appreciated Pulmonary: clear to auscultation bilaterally, no rales/rhonchi/wheezes Abdominal: soft, non-tender, non-distended, no rebound/guarding, normal bowel sounds present Musculoskeletal: normal ROM, no peripheral edema Skin: warm and dry, intact, no rashes, Neuro: CN II-XII intact, no focal deficits Discharge Plan Plan Patient Disposition: HOME (Self Care) Patient condition on transfer: Stable Care Plan Goals: Discharge Recommendations: -Follow up with PCP within 1 week of discharge -Return to the ED or call EMS if symptoms return and/or worsen. Prescriptions/Referrals Prescriptions/Med Rec: No Action No Known Home Medications Referrals: [facility] PATTERN TECHNICIAN,Karen Urias PATTERN TECHNICIAN [Primary Care Provider, Family Practice] Patient/Caregiver Discharge Instructions Discharge Activity: activity as tolerated Education Materials: Viral Gastroenteritis, ED Food Poisoning (Adult), ED Gastroenteritis, Viral (Adult) Print Language: Mandarin Stand Alone Forms: [employer] Award Info., Patient Portal Info Letter, Work/Release Restrictions Discharge Order Discharge Orders: Discharge (Routine); Ordered 08/25/25 Ordered By: Jose Faye Quality Discharge Quality Measures VTE prophylaxis MD Attestestation MD Attestation I have discussed and was present for the essential components of the discharge history, physical examination, diagnosis, and discharge treatment plan with the resident. I agree with the patient's discharge care as documented by the resident and amended herein by me. Cuong Rodrigez DO. The patient understood all discharge instructions, all questions were answered satisfactorily. The patient was instructed to return to the Emergency Department is symptoms worsened or persisted. Patient significantly improved on day of discharge, patient's diarrhea and nausea had improved, the patient was tolerating oral diet. 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 Patient was stable, afebrile, tolerating p.o. intake and ambulatory at time of discharge home. Although this document has been carefully reviewed, there may still be some phonetic and other typographical errors. These errors are purely grammatical due to imperfections in the software program and should not be construed in any way to compromise the substance of the patient's medical care during this visit.
[2025-09-03 07:00] LABS: Norovirus, EIA (Stool)* NOT DETECTED
== END 2025-08-25 16:30 | disposition home or self-care (01) ==
LOC: SERX 08-25 04:01 → SERHOLD 08-25 04:46 → S3SX 08-25 07:50
PROVIDERS: Physician Assistant; Admitting Provider Student in an Organized Health Care Education/Training Program; Emergency Provider Emergency Medicine; PCP Nurse Practitioner Family; Visit Provider Student in an Organized Health Care Education/Training Program
DX: A08.4 Viral intestinal infection, unspecified (principal); K82.8 Other specified diseases of gallbladder; A05.9 Bacterial foodborne intoxication, unspecified
CPT/HCPCS: 36415; 74177; 74250; 76705; 80048; 80053; 80307; 80320; 81001; 83690; 85025; 87449; 87635; 96361; 96365; 96372; 96375; 99284; A4649; G0378; J0696; J1650; J2270; J2405; J3490; J7030; J7120; Q9963; Q9967; G0480; J1836